=== PATIENT | male | born 1970 | race Caucasian/White ===

== ENCOUNTER 2016-10-31 11:30 | Observation (INO) ==
[2016-10-31 11:50] LABS: URINE CULTURE PL NEEDED? NO
[2016-10-31] MEDS ORDERED: SODIUM CHLORIDE 0.9% INJ ONE (11:50)
[2016-10-31] MEDS ORDERED: PHENERGAN IV ONE (11:50)
[2016-10-31] MEDS ORDERED: PHENERGAN ONE (11:51)
--- NOTE | 2016-10-31 11:53 | PROVIDER DOCUMENTATION ---
HPI-Abdominal Pain/GI Problem - General Chief Complaint: Vomiting Stated Complaint: VOMITING Time Seen by Provider: 10/31/16 11:46 Source: patient, family Allergies/Adverse Reactions: Patient Allergies Allergy/AdvReac Type Severity Reaction Status Date / Time No Known Allergies Allergy Verified 06/26/13 14:50 Home Medications: Home Medication List Medication Instructions Recorded Confirmed Last Taken Type Bp Med 06/26/13 06/26/13 Unknown History Carisoprodol [Soma] 350 mg PO DAILY 06/26/13 06/26/13 Unknown History Glyburide/Metformin HCl 1 each PO BID 06/26/13 06/26/13 Unknown History [Glucovance 1.25/250 mg Tablet] Tramadol [Ultram] 50 mg PO Q6H PRN PRN #20 tablet 06/26/13 Unknown Rx Losartan/Hydrochlorothiazide 12.5 mg PO DAILY 10/31/16 10/31/16 Unknown History [Losartan-Hctz 100-12.5 mg Tab] - History of Present Illness-ABD Nature of Presenting Problems: pt is 46 y/o m type 1 diabetic, began vomiting this morning and has continuous since. no diarrhea or fever. history of DKA Quality of Pain: reports: none Severity in ED: reports: moderate, severe Onset/Duration: reports: abrupt, this morning Timing: reports: still present, constant Activities at Onset: reports: none Modifying Factors: improves with: nothing Associated Symptoms: reports: nausea, vomiting. denies: diarrhea, dizziness, fever/chills, genitourinary problems, shortness of breath Similar Symptoms Previously?: Yes Recently seen or treated by another doctor?: No Review of Systems - Adult - REVIEW OF SYSTEMS - ADULT Constitutional: denies: chills, fever Eyes: reports: no symptoms reported Ears, Nose, Mouth & Throat: reports: no symptoms reported Cardiovascular: denies: chest pain, orthopnea, palpitations, syncope Respiratory: denies: cough, shortness of breath, wheezing Gastrointestinal: reports: nausea, vomiting. denies: abdominal pain, diarrhea Genitourinary: reports: no symptoms reported Musculoskeletal: reports: no symptoms reported Integumentary: reports: no symptoms reported Neurological: reports: no symptoms reported Psychiatric: reports: no symptoms reported Endocrine: reports: no symptoms reported Hematologic/Lymphatic: reports: no symptoms reported Allergic/Immunologic: reports: no symptoms reported All Other Systems: Reviewed and Negative Past History - Adult - PAST MEDICAL HISTORY-ADULT Review of Records: reports: Old Records Reviewed, Nursing Assessment Review, Medications Reviewed Cardiovascular: reports: HTN Endocrine/Immune: reports: Diabetes Diabetes controlled by:: PO Meds - PRIOR SURGERIES/PROCEDURES Surgical/Procedure History: reports: hernia repair - PRIOR HOSPITALIZATIONS Prior Hospitalizations: reports: none - IMMUNIZATION STATUS Childhood Immunizations: See Nurse Assessment Flu Vaccine: See Nurse Assessment - FAMILY HISTORY Family History: reviewed, not pertinent - SOCIAL HISTORY Smoking: cigarettes, less than 1 pack/day Living Situation: family Physical Exam-General - PHYSICAL EXAM-ADULT Initial Vital Signs Reviewed: Yes - CONSTITUTIONAL General Appearance: alert, mild distress, moderate distress, anxious - EYES Eyes: PERRL/EOMI, pink conjunctivae - HEAD, EARS, NOSE, MOUTH & THROAT HENMT: normocephalic/atraumatic, moist mucous membranes, normal ENT inspection - NECK Neck: full range of motion - RESPIRATORY Respiratory: lungs clear, normal breath sounds, no respiratory distress, no accessory muscle use - CARDIOVASCULAR Cardiovascular: regular rate, rhythm, no edema - GASTROINTESTINAL (ABDOMEN) Abdominal Exam: normal bowel sounds, non tender, soft, no organomegaly, no pulsatile mass - MUSCULOSKELETAL Back Exam: no CVA tenderness, no vertebral tenderness Extremity: normal range of motion, normal inspection - SKIN Integumentary: normal color, warm/dry - PSYCHIATRIC Psych/Mental Status: oriented x 3, anxious Progress - PLAN OF CARE/RESULTS Progress/Plan/Lab Results: Vital Signs - 8 hr 10/31/16 11:36 Temperature 98.3 F Pulse Rate 55 L Respiratory Rate 18 Blood Pressure 163/86 O2 Sat by Pulse Oximetry 100 Orders Category Date Time Status ED: Orthostatic Vital Signs (E as directed Care 10/31/16 11:41 Active FLAT/UPRIGHT ABD/1 VIEW CHEST [RAD] Stat Exams 10/31/16 11:42 Ordered ABG [RESP] Routine Lab 10/31/16 11:49 Ordered ACETONE SERUM [CHEM] Stat Lab 10/31/16 11:49 Ordered AMYLASE [CHEM] Stat Lab 10/31/16 11:41 Ordered CBC WITH DIFF [HEME] Stat Lab 10/31/16 11:41 Ordered COMPREHENSIVE METABOLIC PANEL [CHEM] Stat Lab 10/31/16 11:41 Ordered LACTATE, PLASMA [CHEM] Stat Lab 10/31/16 11:49 Ordered LIPASE [CHEM] Stat Lab 10/31/16 11:41 Ordered PHOSPHORUS [CHEM] Stat Lab 10/31/16 11:[address] W/POSS RFLX CULT [URINALYSIS] Stat Lab 10/31/16 11:41 Received Promethazine [Phenergan] Med 10/31/16 11:50 Once 25 mg IV NOW ONE Sodium Chloride 0.9% Med 10/31/16 11:50 Once 10 ml INJ NOW ONE Laboratory Tests 10/31/16 10/31/16 10/31/16 11:41 11:57 11:57 WBC 23.04 H RBC 5.48 Hgb 17.7 Hct 50.6 MCV 92.3 MCH 32.3 H MCHC 35.0 RDW Std Deviation 12.5 Plt Count 331 MPV 10.4 Immature Gran % (Auto) 0.3 Neut % (Auto) 81.6 H Lymph % (Auto) 11.6 L [place] % (Auto) 5.8 Eos % (Auto) 0.5 Baso % (Auto) 0.2 Immature Gran # (Auto) 0.06 H Neut # (Auto) 18.81 H Lymph # (Auto) 2.68 [place] # (Auto) 1.34 H Eos # (Auto) 0.11 Baso # (Auto) 0.04 Segmented Neutrophils 92 H Lymphocytes 7 L Monocytes 1 Sodium 140 Potassium 4.3 Chloride 98 Carbon Dioxide 24 L Anion Gap 19 BUN 15 Creatinine 0.9 Estimated GFR/1.73 m2 > 60 BUN/Creatinine Ratio 17 Glucose 233 H Calculated Osmolality 288 Calcium 10.1 Phosphorus Total Bilirubin 0.50 AST 23 ALT 15 Alkaline Phosphatase 65 Total Protein 8.9 H Albumin 5.1 H Globulin 4.0 Albumin/Globulin Ratio 1.0 Amylase 178 Lipase 82 H Plasma Lactate Urine Source CLEAN CATCH Urine Color YELLOW Urine Clarity CLEAR Urine pH 5.0 Ur Specific [place] 1.020 Urine Protein TRACE A Urine Ketones NEGATIVE Urine Blood 2+ A Urine Nitrite NEGATIVE Urine Bilirubin NEGATIVE Urine Urobilinogen NORMAL Urine Microscopic RBC 10-20 A Urine WBC TRACE A Urine Microscopic WBC <10 Ur Epithelial Cells >10 A Urine Glucose 1+(100 mg/dL) A Acetone Level 10/31/16 10/31/16 11:57 12:15 WBC RBC Hgb Hct MCV MCH MCHC RDW Std Deviation Plt Count MPV Immature Gran % (Auto) Neut % (Auto) Lymph % (Auto) [place] % (Auto) Eos % (Auto) Baso % (Auto) Immature Gran # (Auto) Neut # (Auto) Lymph # (Auto) [place] # (Auto) Eos # (Auto) Baso # (Auto) Segmented Neutrophils Lymphocytes Monocytes Sodium Potassium Chloride Carbon Dioxide Anion Gap BUN Creatinine Estimated GFR/1.73 m2 BUN/Creatinine Ratio Glucose Calculated Osmolality Calcium Phosphorus 1.9 L Total Bilirubin AST ALT Alkaline Phosphatase Total Protein Albumin Globulin Albumin/Globulin Ratio Amylase Lipase Plasma Lactate 2.4 H Urine Source Urine Color Urine Clarity Urine pH Ur Specific [place] Urine Protein Urine Ketones Urine Blood Urine Nitrite Urine Bilirubin Urine Urobilinogen Urine Microscopic RBC Urine WBC Urine Microscopic WBC Ur Epithelial Cells Urine Glucose Acetone Level NEGATIVE Result Diagrams: 10/31/16 11:57 10/31/16 11:57 - REASSESSMENT Reassessment #1 Time Reassessed: 13:20 Status: unchanged Reassessment Comment: vomiting, abdominal repeat exam nml - CT/MRI 1 CT Study: Abdomen, Pelvis Impression: Abnormal CT Results: nad in abdomen or pelvis, mild cmg - CONSULTS/PCP/HOSPITALIST Notification #1 *Consult/PCP/Hospitalist*: ( long term acute care registered nurse for hospitalist) Time Discussed: 15:36 Consult Disposition: Admit Departure - Departure Date of Disposition Decision: 10/31/16 Time of Disposition Decision: 15:37 DIAGNOSIS: Leukocytosis Intractable vomiting Qualifiers: Vomiting type: cyclical vomiting Nausea presence: with nausea Qualified Code(s) : G43.A1 - Cyclical vomiting, intractable Disposition: ADMITTED INPATIENT 09 Certified Medical Emergency: Emergent Condition: Stable Referrals and Follow-Ups: Immanuel Jeffrey MD [Primary Care Provider] - - Critical Care Note This patient required my direct & personal management of CC.: No
[2016-10-31 11:54] LABS: BILIRUBIN URINE NEGATIVE (NEGATIVE); BLOOD URINE 2+ (NEGATIVE); CLARITY CLEAR (CLEAR); COLOR YELLOW; LEUKOCYTES URINE TRACE (NEGATIVE); NITRITE URINE NEGATIVE (NEGATIVE); PROTEIN URINE TRACE mg/dL (NEGATIVE); UROBILINOGEN URINE NORMAL
[2016-10-31 11:58] LABS: URINE WBC <10 /HPF (<10)
[2016-10-31 11:59] LABS: URINE EPITHELIAL CELLS >10 /HPF (<10); URINE SOURCE CLEAN CATCH
[2016-10-31 12:22] LABS: BASO% 0.2 % (0.0-0.8); EOS# 0.11 X1000 (0.0-0.7); EOS% 0.5 % (0.0-10.0); HEMATOCRIT 50.6 % (42.0-52.0); HEMOGLOBIN 17.7 g/dL (14.0-18.0); IMM GRAN# 0.06 X1000 (0.0-0.04); IMM GRAN% 0.3 % (0.0-0.5); LYMPH# 2.68 X1000 (1.2-3.4); LYMPH% 11.6 % (20.5-51.1); MANUAL DIFF NEEDED? YES; MCH 32.3 PG (27-31); MCV 92.3 FL (81-99); MONO# 1.34 X1000 (0.11-0.59); MONO% 5.8 % (1.7-9.3); MPV 10.4 FL (7.4-10.4); NEUT% 81.6 % (42.2-75.2); PLT 331 X1000 (130-400); RBC 5.48 XMIL (4.7-6.1)
[2016-10-31 12:24] LABS: ACETONE SERUM NEGATIVE (NEGATIVE)
[2016-10-31 12:32] LABS: LYMPHS 7 % (21-51); MONO 1 % (1-9)
[2016-10-31 12:33] LABS: AGAP 19; ALBUMIN 5.1 g/dL (3.5-5.0); ALKALINE PHOSPHATASE 65 U/L (32-122); AMYLASE 178 U/L (20-200); BUN 15 mg/dL (8-22); CALCIUM 10.1 mg/dL (8.8-10.2); CHLORIDE 98 mmol/L (98-107); COSMO 288; GOT 23 U/L (10-34); GPT 15 U/L (10-44); LIPASE 82 U/L (13-60); POTASSIUM 4.3 mmol/L (3.5-5.1); SODIUM 140 mmol/L (136-145); TCO2 24 mmol/L (25-35); TOTAL PROTEIN 8.9 g/dL (6.3-8.3)
[2016-10-31] MEDS ORDERED: NS 1,000 ML IV ONE ×2 (13:16→14:11)
[2016-10-31] MEDS ORDERED: NS 2,000 ML ONE (13:17)
[2016-10-31] MEDS ORDERED: ZOFRAN ONE (13:19)
[2016-10-31] MEDS ORDERED: ZOFRAN IV ONE (13:20)
--- NOTE | 2016-10-31 13:40 | Diag Imaging Result Doc PS360 ---
FLAT/UPRIGHT ABD/1 VIEW CHEST - 10/31/2016 INDICATION: vomiting abd pain TECHNIQUE: Three views COMPARISON: Chest x-ray 06/26/2013 FINDINGS: The chest is clear. There are ventral hernia repair coils in the pelvis. There is a nonobstructive bowel gas pattern. No free air or abnormal calcifications. IMPRESSION: No acute disease. Electronically signed by Alexandr Parisi 10/31/2016 1:38 PM
--- NOTE | 2016-10-31 14:56 | Diag Imaging Result Doc PS360 ---
CT ABD/PELVIS W/ IV CONT ONLY - 10/31/2016 INDICATION: abdominal pain, n/v, elevated WBC TECHNIQUE: A CT dose reduction protocol was used. COMPARISON: None FINDINGS: There is mild cardiomegaly. The lung bases are clear of infiltrate. There is a tiny cyst in the liver. There is cortical scarring of the left kidney. There are ventral hernia repair coils at the pelvis. No bowel obstruction or inflammation. Normal appendix. Urinary bladder, prostate, and rectum are normal. There are moderate degenerative changes of the spine. No acute or suspicious bony lesion. IMPRESSION: Mild cardiomegaly. No acute process in the abdomen or pelvis. Electronically signed by Alexandr Parisi 10/31/2016 2:53 PM
[2016-10-31] MEDS ORDERED: COMPAZINE IV ONE (15:15)
[2016-10-31] MEDS ORDERED: ZOFRAN IV PRN (16:11)
--- NOTE | 2016-10-31 16:58 | HISTORY AND PHYSICAL ---
PRIMARY CARE PHYSICIAN: Immanuel Jeffrey MD. CHIEF COMPLAINT: Vomiting 6-8 times today with generalized abdominal pain. HISTORY OF PRESENTING ILLNESS: This is a 46-year-old, male, who presents to [facility] ER stating that he began vomiting this morning and has vomited 6-8 times at home with generalized abdominal pain that is constant and dull. When he arrived to the emergency room, his laboratory data showed a white blood cell count of 23.04, chemistry panel was essentially benign except his blood sugar was 233, his phosphorus was low at 1.9, plasma lactate of 2.4. Urinalysis was negative. His acetone level was negative. We did a CT of the abdomen and pelvis that showed mild cardiomegaly but no acute process in the abdomen or pelvis. We did an abdomen x-ray that showed no acute disease. The patient states that his fixed some chicken livers for supper last night so at this point it is looking like a gastroenteritis maybe secondary to that, but he will be admitted for further evaluation and treatment. PAST MEDICAL HISTORY: Diabetes type 2 and hypertension. PAST SURGICAL HISTORY: Hernia repair. FAMILY HISTORY: Noncontributory. SOCIAL HISTORY: Currently lives with family. He is a 1 pack a day smoker and has been so for the past 35 years. Denies any alcohol or illicit drug use. ALLERGIES: He has no known drug allergies. HOME MEDICATIONS: Will be verified and we will restart those as appropriate. LABORATORY DATA: White blood cell count of 23.04, hemoglobin of 17.7, hematocrit 50.6, platelets 331,000, sodium 140, potassium 4.3, chloride 98, CO2 24, BUN of 15, creatinine 0.9, glucose 233, phosphorus was 1.9, amylase of 178, lipase of 82, plasma lactate of 2.4. Urinalysis was negative. Serum acetone level was negative. Abdomen x-ray showed no acute disease. It also stated that the chest was clear. Abdomen and pelvic CT showed mild cardiomegaly and no acute process in the abdomen or pelvis. REVIEW OF SYSTEMS: He denied any fever, chills, blurred vision, dizziness, chest pain, coughing, shortness of breath. He is positive for generalized abdominal pain, nausea and vomiting. Denied any diarrhea, burning or hurting with urination. PHYSICAL EXAMINATION: VITAL SIGNS: On arrival, he had a temperature of 98.3 degrees, pulse 55, respirations 18, blood pressure was 163/86, saturating 100% on room air. GENERAL: This is a 46-year-old, male, who is lying in the bed, and answers questions appropriately. HEENT: Normocephalic and atraumatic. Pupils are equal, round, and reactive to light. Extraocular movements are intact. Oropharynx and nares are clear. NECK: Supple. LUNGS: Clear to auscultation bilaterally with equal lung expansion and chest wall movement. HEART: Regular rate and rhythm. No murmurs, rubs, or gallops. ABDOMEN: Soft. There is some tenderness to mild palpation. Hypoactive bowel sounds x4. EXTREMITIES: No clubbing, cyanosis, or edema. NEUROLOGICAL: Cranial nerves 2-12 appear grossly intact. ASSESSMENT: 1. Gastroenteritis. 2. Generalized abdominal pain. 3. Nausea and vomiting. 4. Leukocytosis. 5. Tobacco abuse. 6. Diabetes type 2. 7. Hypertension. PLAN: He is being admitted to the medical unit at [place]. He was started on normal saline at 125 mL an hour and Zofran 4 mg IV q.4 hours p.r.n. We will continue his losartan/hydrochlorothiazide. We will try to verify the rest of his home medications. Recheck a CBC, CMP. He will be NPO at this time. Dictated by JAZMYNE Morales for Mayur Wray MD cc: JAZMYNE Morales MD Henry S Beeler, MD
[2016-10-31] MEDS: ZOFRAN IV PRN ×2 (17:06→20:15)
[2016-10-31] MEDS: NS 1,000 ML IV SCH (17:06)
[2016-10-31] MEDS ORDERED: ULTRAM PO PRN (18:47)
[2016-10-31] MEDS ORDERED: SOMA PO PRN (21:52)
[2016-11-01] MEDS ORDERED: TYLENOL PO ONE (00:05)
[2016-11-01] MEDS: NS 1,000 ML IV SCH (01:36)
[2016-11-01 05:49] LABS: MANUAL DIFF NEEDED? NO
[2016-11-01 06:03] LABS: BASO% 0.1 % (0.0-0.8); HEMOGLOBIN 14.6 g/dL (14.0-18.0); IMM GRAN# 0.04 X1000 (0.0-0.04); IMM GRAN% 0.2 % (0.0-0.5); LYMPH% 15.4 % (20.5-51.1); MCH 32.8 PG (27-31); MCHC 35.6 g/dL (33-37); MCV 92.1 FL (81-99); MONO# 1.58 X1000 (0.11-0.59); NEUT% 75.3 % (42.2-75.2); PLT 263 X1000 (130-400); RBC 4.45 XMIL (4.7-6.1)
[2016-11-01 06:25] LABS: AGAP 11; ALBUMIN 3.9 g/dL (3.5-5.0); ALKALINE PHOSPHATASE 47 U/L (32-122); BUN 11 mg/dL (8-22); CHLORIDE 102 mmol/L (98-107); COSMO 277; GOT 22 U/L (10-34); GPT 11 U/L (10-44); POTASSIUM 3.6 mmol/L (3.5-5.1); SODIUM 137 mmol/L (136-145); TCO2 24 mmol/L (25-35); TOTAL PROTEIN 6.5 g/dL (6.3-8.3)
[2016-11-01] MEDS ORDERED: HUMALOG (PARKWAY) SUBQ SCH (07:00)
[2016-11-01] MEDS ORDERED: HUMALOG DOSE (PARKWAY) SUBQ SCH (08:37)
[2016-11-01] MEDS ORDERED: HYDROCHLOROTHIAZIDE PO SCH (09:00)
[2016-11-01] MEDS ORDERED: REQUIP PO SCH (09:00)
[2016-11-01] MEDS ORDERED: COZAAR PO SCH (09:00)
[2016-11-01 11:43] VITALS: BP 139/53
--- NOTE | 2016-11-02 09:41 | DISCHARGE SUMMARY ---
ADMISSION DATE: 10/31/2016 DISCHARGE DATE: 11/01/2016 ADMISSION DIAGNOSES: 1. Gastroenteritis. 2. Generalized abdominal pain. 3. Nausea and vomiting. 4. Leukocytosis. 5. Tobacco abuse. 6. Diabetes type 2. 7. Hypertension. DISCHARGE DIAGNOSES: 1. Gastroenteritis, resolved. 2. Generalized abdominal pain, resolved. 3. Nausea and vomiting, resolved. 4. Leukocytosis, improved. 5. Tobacco abuse. 6. Diabetes type 2. 7. Hypertension. SUMMARY OF FINDINGS: This is a 46-year-old male, who presented to the emergency room stating that he began vomiting on the morning of arrival and had vomited 6 to 8 times with some generalized abdominal pain that was constant and dull. He states that his had fixed some fried chicken livers on the night before but otherwise was a normal day. His white count when he arrived was 23.04. His chemistry panel was essentially negative. We did a CT of the abdomen and pelvis that showed some mild cardiomegaly, but no acute process of the abdomen and pelvis. We did an abdominal x-ray that showed no acute disease. He was admitted, hydrated, and placed on antiemetics. We advanced his diet this morning. He tolerated a GI soft diet. His white count is down to 17.57. Electrolytes are still within normal limits. He states he has had no further nausea or vomiting, was feeling much better, and so he was discharged home today. DISCHARGE MEDICATIONS: No new prescriptions were given. He is to continue his home medications of Soma 350 mg p.o. b.i.d. p.r.n., Glucovance 1.25/250 two p.o. b.i.d., lisinopril 10 mg p.o. daily, ropinirole 0.25 mg p.o. daily, and tramadol 50 mg 1-2 p.o. q.4 hours p.r.n. FOLLOWUP: He will followup with his primary care physician in the next 1-2 weeks. All discharge instructions were reviewed with the patient and he verbalized understanding. DISCHARGE TIME: Thirty-five minutes. Dictated by JAZMYNE Morales for Mayur Wray MD cc: JAZMYNE Morales MD Henry S Beeler, MD
== END 2016-11-01 11:45 | disposition home or self-care (01) ==
LOC: P.MEDSURG 11:30 → P.ED 11:30
PROVIDERS: ATTEND Family Medicine